=== PATIENT | female | born 1945 | race Caucasian/White ===

== ENCOUNTER 2022-06-07 16:24 | Emergency (ER) | payer OTHER, BC ==
[2022-06-07 16:45] VITALS: BP 133/79; PULSE 81; RESP 18; TEMP 99; BMI 32.3
[2022-06-07] MEDS ORDERED: DEXAMETHASONE SOD PHOSPHATE 10 MG/1 ML VIAL IM ONE (18:24)
[2022-06-07] MEDS ORDERED: LIDOCAINE VISCOUS 2% ORAL/TOP 15 ML UNIT-DOSE CUP MM ONE (18:24)
[2022-06-07] MEDS ORDERED: DEXAMETHASONE SOD PHOSPHATE/PF 10 MG/ML SDV ONE (18:25)
[2022-06-07] MEDS ORDERED: LIDOCAINE VISCOUS 2% ORAL/TOP 15 ML UNIT-DOSE CUP ONE (18:25)
== END 2022-06-07 18:57 | disposition home or self-care (01) ==
LOC: FER 16:24
PROC: 3E0233Z Introduction of Anti-inflammatory into Muscle, Percutaneous Approach (ICD-10-PCS; principal; 2022-06-07)
DX: K12.0 Recurrent oral aphthae (principal); J02.9 Acute pharyngitis, unspecified
CPT/HCPCS: 0241U-QW; 99284-25; J1100